=== PATIENT | female | born 1980 | race Asian ===

== ENCOUNTER 2017-08-31 11:10 | Inpatient (IN) | payer BC ==
[2017-08-31 12:16] LABS: BASO % 0.6 % (0-2.0); EOS % 0.7 % (0-4.5); HEMATOCRIT 26.2 % (32.4-45.2); HEMOGLOBIN 8.2 GM/dL (10.7-15.3); LYMPH % 17.3 % (8-40); MCHC 31.4 g/dl (32.0-36.0); MEAN CELL VOLUME 86.1 fl (80-96); MEAN PLT VOLUME 8.5 fl (7.5-11.1); MONO % 6.3 % (3.8-10.2); NEUT % 75.1 % (42.8-82.8); PLATELET COUNT 187 K/MM3 (134-434); RBC 3.05 M/mm3 (3.60-5.2); RDW 17.5 % (11.6-15.6); WHITE BLOOD COUNT 6.9 K/mm3 (4.0-10.0)
[2017-08-31 12:34] LABS: INR 0.93 (0.82-1.09); PROTHROMBIN TIME (PATIENT) 10.5 SEC (9.98-11.88)
[2017-08-31 12:38] LABS: ANION GAP 5 (8-16); BLOOD UREA NITROGEN 8 mg/dL (7-18); CHLORIDE 106 mmol/L (98-107); CO2 26 mmol/L (21-32); CREATININE 0.5 mg/dL (0.55-1.02); GLUCOSE,RANDOM 79 mg/dL (74-106); POTASSIUM 4.1 mmol/L (3.5-5.1); SODIUM 137 mmol/L (136-145)
[2017-08-31 12:53] VITALS: BMI 27.3
[2017-08-31] MEDS ORDERED: TUBERCULIN PPD 5 TU/0.1ML SYRINGE (IN PATIENT USE ONLY) ID ONE (13:00)
[2017-08-31] MEDS ORDERED: BUTORPHANOL TARTRATE 1 MG/ML VIAL IVPB ONE (15:30)
[2017-08-31] MEDS ORDERED: PROMETHAZINE HCL 25 MG/1 ML VIAL IVPUSH ONE (15:30)
[2017-08-31] MEDS ORDERED: ELECTROLYTE-148 SOLN 1,000 ML IV SCH (15:30)
--- NOTE | 2017-08-31 15:38 | HP ---
Past Medical History - Primary Care Physician PCP:: Rosana Potter - Admission Chief Complaint: induction at 40.1 weeks. AMA. Chronic Hepatitis History of Present Illness: 36 yo edc 08/29/17 ega 40.1 weeks admitted for induction no rom, bleeding or pain History Source: Patient - Past Medical History Hepatobiliary: Yes: Hepatitis B (Chronic) ...: 3 ...Para: 2 ...Term: 2 ...: 0 ...Spon : 0 ...Induced : 0 ...Multiple Gestation: 0 ...LMP: 11/23/16 ... Weeks Gestation by Dates: 40.1 ...EDC by Dates: 08/30/17 Additional Medical History: chronic hepatitis - Past Surgical History Past Surgical History: Yes: None Hx Myomectomy: No Hx Transabdominal Cerclage: No Additional Surgical History: abdominoplasty - Smoking History Smoking history: Never smoked Have you smoked in the past 12 months: No - Alcohol/Substance Use Hx Alcohol Use: No History of Substance Use: reports: None Home Medications - Allergies Allergies/Adverse Reactions: Allergies Allergy/AdvReac Type Severity Reaction Status Date / Time No Known Allergies Allergy Verified 08/31/17 11:44 - Home Medications Home Medications: Ambulatory Orders 19 Tablet 1 tab PO DAILY 08/31/17 Review of Systems - Review of Systems Constitutional: reports: No Symptoms Eyes: reports: No Symptoms HENT: reports: No Symptoms Neck: reports: No Symptoms Cardiovascular: reports: No Symptoms Respiratory: reports: No Symptoms Gastrointestinal: reports: No Symptoms Genitourinary: reports: No Symptoms Breasts: reports: No Symptoms Reported Musculoskeletal: reports: No Symptoms Integumentary: reports: No Symptoms Neurological: reports: No Symptoms Endocrine: reports: No Symptoms Hematology/Lymphatic: reports: No Symptoms Psychiatric: reports: No Symptoms Physical Exam - Maternity Vital Signs: Vital Signs Temperature 98.9 F 08/31/17 14:00 Pulse Rate 82 08/31/17 15:00 Respiratory Rate 18 08/31/17 15:00 Blood Pressure 100/57 08/31/17 15:00 O2 Sat by Pulse Oximetry (%) Constitutional: Yes: Well Nourished, No Distress Cardiovascular: Yes: WNL Lungs: Clear to auscultation Breast(s): Yes: WNL - Abdominal Exam/OB Fundal Height: 40 Number of Fetuses: Single Presentation: Vertex Contractions: No Monitor Mode: External Category: I Accelerations: Non-Uniform Decelerations: None - Vaginal Exam/OB Dilatation (cm): 3 cm Effacement (%): 50 Amniotic Membrane Status: Intact Presentation: Vertex/Position - Physical Exam Musculoskeletal: Yes: WNL Extremities: Yes: WNL Edema: No Psychiatric: Yes: WNL, Alert, Oriented - Labs Lab Results: CBC, BMP 08/31/17 12:00 08/31/17 12:00 Problem List - Problems (1) Elective induction of labor planned Assessment/Plan: LAbor Chronic Hepatitis Code(s): [id number] - Assessment/Plan iup at 40.1 weeks Chonic Hepatitis induction due to age Plan cervidil
[2017-08-31] MEDS ORDERED: DINOPROSTONE 10 MG VAGINAL SUPPOSITORY VG ONE (15:45)
[2017-08-31] MEDS ORDERED: DEXTROSE 5%-LACTATED RINGERS 1,000 ML IV ONE (23:18)
[2017-09-01] MEDS ORDERED: DEXTROSE 5%-LACTATED RINGERS 1,000 ML IV ONE (03:04)
[2017-09-01] MEDS ORDERED: OXYTOCIN 15 UNITS/ LR 250 ML 15 UNIT/250 ML INFUS.BAG IVPB ONE (04:15)
[2017-09-01] MEDS ORDERED: OXYTOCIN 30 UNITS in 0.9% NS 30 UNIT/500 ML INFUS.BAG IVPB SCH (04:15)
[2017-09-01] MEDS ORDERED: OXYTOCIN 20 UNITS in 0.9% NS 20 UNIT/1,000 ML INFUS.BAG IV ONE ×3 (04:16→09:12)
--- NOTE | 2017-09-01 07:03 | PN ---
Ante-Partal Exam - Subjective Subjective: Pt feels the urge to push Vital Signs: Vital Signs Temperature 98.0 F 09/01/17 03:00 Pulse Rate 62 09/01/17 03:00 Respiratory Rate 18 09/01/17 03:00 Blood Pressure 96/53 09/01/17 03:00 O2 Sat by Pulse Oximetry (%) Bleeding: No Headache: No Visual changes: No Right upper quadrant pain: No - Contractions Contractions: Yes Regularity: Regular Intensity: Mod/Strong Monitor Mode: External - Exam during Labor Heart Rate: 150 Variability: Moderate Category: I Monitor Decelerations: None Exam: Vaginal Dilatation (cm): FD Effacement (%): 100 Amniotic Membrane Status: Ruptured Amniotic Fluid: Clear Presentation: Vertex Station: +2 - Intrapartum Hemorrhage Risk Risk Score: 0 Risk Level: Low Risk - Assessment/Plan Assessment/Plan: 2nd stage labor Plan anticipate vaginal delivery
[2017-09-01] MEDS ORDERED: BENZOCAINE 20% 57 GM BOTTLE TP PRN (07:06)
[2017-09-01] MEDS ORDERED: BENZOCAINE 28 GM HEMORRHOIDAL OINTMENT TP PRN (07:06)
[2017-09-01] MEDS ORDERED: WITCH HAZEL 50% (TUCKS) 40 PAD/JAR PAD TP PRN (07:06)
[2017-09-01] MEDS ORDERED: METHYLERGONOVINE MALEATE 0.2 MG/1 ML AMP IM PRN (07:06)
[2017-09-01] MEDS ORDERED: IBUPROFEN 600 MG TABLET (FP) PO PRN (07:06)
[2017-09-01] MEDS ORDERED: ACETAMINOPHEN 325 MG TABLET (FP) PO PRN (07:06)
[2017-09-01] MEDS ORDERED: BISACODYL 10 MG SUPP.RECT RC PRN (07:06)
--- NOTE | 2017-09-01 07:06 | PN ---
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
[2017-09-01] MEDS ORDERED: OXYTOCIN 20 UNITS in 0.9% NS 20 UNIT/1,000 ML INFUS.BAG IV SCH (07:15)
[2017-09-01] MEDS: PRENATAL VITAMINS W/ FOLIC ACID TABLET (FP) PO SCH (10:50)
[2017-09-02 08:43] LABS: BASO % 0.3 % (0-2.0); EOS % 0.5 % (0-4.5); HEMATOCRIT 27.3 % (32.4-45.2); HEMOGLOBIN 8.5 GM/dL (10.7-15.3); LYMPH % 10.2 % (8-40); MCH 26.8 pg (25.7-33.7); MCHC 31.2 g/dl (32.0-36.0); MEAN CELL VOLUME 85.8 fl (80-96); MEAN PLT VOLUME 8.7 fl (7.5-11.1); MONO % 4.7 % (3.8-10.2); NEUT % 84.3 % (42.8-82.8); PLATELET COUNT 176 K/MM3 (134-434); RBC 3.19 M/mm3 (3.60-5.2); RDW 17.5 % (11.6-15.6); WHITE BLOOD COUNT 10.8 K/mm3 (4.0-10.0)
[2017-09-02] MEDS ORDERED: DIPHTH,PERTUSS(ACELL),TET 0.5 ML DISP.SYRIN IM ONE (10:00)
[2017-09-02] MEDS: PRENATAL VITAMINS W/ FOLIC ACID TABLET (FP) PO SCH (10:09)
--- NOTE | 2017-09-02 12:05 | CON.ID ---
Consult - Past Medical History Additional Medical History: chronic hepatitis - Past Surgical History Additional Surgical History: abdominoplasty - Alcohol/Substance Use Hx Alcohol Use: No - Smoking History Smoking history: Never smoked Have you smoked in the past 12 months: No Home Medications - Allergies Allergies/Adverse Reactions: Allergies Allergy/AdvReac Type Severity Reaction Status Date / Time No Known Allergies Allergy Verified 08/31/17 11:44 - Home Medications Home Medications: Ambulatory Orders 19 Tablet 1 tab PO DAILY 08/31/17 Physical Exam Vital Signs: Vital Signs Temperature 98 F 09/02/17 10:00 Pulse Rate 70 09/02/17 10:00 Respiratory Rate 20 09/02/17 10:00 Blood Pressure 102/56 09/02/17 10:00 O2 Sat by Pulse Oximetry (%) Labs: CBC, BMP 09/02/17 08:00 08/31/17 12:00
--- NOTE | 2017-09-02 12:20 | PN ---
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
[2017-09-02] MEDS ORDERED: SENNOSIDES/DOCUSATE COMBO (SENNA PLUS) TABLET (UD) PO PRN (22:00)
--- NOTE | 2017-09-03 01:44 | PN ---
Post Note - Post Date of Delivery: 09/01/17 Post Day: 1 Vital Signs: Vital Signs - 24 hr 09/02/17 09/02/17 09/02/17 02:00 06:00 10:00 Temperature 98.1 F 98.3 F 98 F Pulse Rate 72 65 70 Respiratory 20 20 20 Rate Blood Pressure 110/75 110/67 102/56 09/02/17 22:00 Temperature 98.6 F Pulse Rate 65 Respiratory 18 Rate Blood Pressure 122/65 Labs: Laboratory Results - last 24 hr 09/02/17 08:00 WBC 10.8 H D RBC 3.19 L Hgb 8.5 L Hct 27.3 L MCV 85.8 MCH 26.8 MCHC 31.2 L RDW 17.5 H Plt Count 176 MPV 8.7 Neutrophils % 84.3 H Lymphocytes % 10.2 D Monocytes % 4.7 Eosinophils % 0.5 Basophils % 0.3 - Subjective Subjective: No Complaints - Objective Afebrile: Yes Breast: Not engorged Abdomen: Soft, Non-tender Uterus: Fundus firm Vagina: Scant lochia Extremities: Non-tender - Assessment/Plan (1) Elective induction of labor planned Assessment: S/P Normal Plan: Routine Care, Other (Will draw LFTs Hepatitis profile viral load)
--- NOTE | 2017-09-03 01:46 | DS ---
Physical Exam-[employer] Vital Signs: Vital Signs Temperature 98.6 F 09/02/17 22:00 Pulse Rate 65 09/02/17 22:00 Respiratory Rate 18 09/02/17 22:00 Blood Pressure 122/65 09/02/17 22:00 O2 Sat by Pulse Oximetry (%) Constitutional: Yes: Well Nourished, No Distress Cardiovascular: Yes: WNL Respiratory: Yes: WNL Gastrointestinal: Yes: WNL, Normal Bowel Sounds, Soft ....Post : Yes: Uterus firm, Uterus non-tender Breast(s): Yes: WNL Musculoskeletal: Yes: WNL Extremities: Yes: WNL Edema: No Integumentary: Yes: WNL Labs: CBC, BMP 09/02/17 08:00 08/31/17 12:00 Delivery - Delivery Vaginal Delivery: No Problems Type of Anesthesia: None Episiotomy/Laceration: None EBL (cc): 300 Delivery, Single - Stages of Labor Date 1st Stage Initiatied: 09/01/17 Time 1st Stage Initiated: 03:00 Date 2nd Stage Initiated: 09/01/17 Time 2nd Stage Initiated: 06:40 Date of Delivery: 09/01/17 Time of Delivery: 06:46 Time Placenta Delivered: 06:50 Placenta: Yes: Spontaneous - 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 You may walk unlimited ashutosh of and climb stairs. You may resume driving the car when you feel safe and comfortable behind the wheel. No sexual activity as instructed. Wound care If you have a bandage, leave it on, and keep dry for 48-72 hours. After that time discard the outer bandage. If they are tapes on the skin under the out of bandage leave them in place. They will peel off in the next 7 to 10 days. Do Not Peel them off. You may shower the day after surgery. If there are tapes present on the skin, you may shower over them. Diet There are no dietary restrictions. Eat healthy, high-fiber foods. Drink 6 to 8 glasses of liquid each day. This will assist in keeping your bowels are regular. Pain management You may take Tylenol or acetaminophen or Ibuprofen (for example, Motrin, Advil etc.) from my pain prescription medication is ordered should be taken as prescribed for moderate to severe pain. Call MD for any of the following: Severe pain not relieved by medication Fever of 101 or higher Excessive bleeding or drainage on dressing Inability to urinate Referrals: Rosana Potter MD [Staff Physician] - Disposition: HOME - Home Medications Comprehensive Discharge Medication List: Ambulatory Orders 19 Tablet 1 tab PO DAILY 08/31/17
[2017-09-03] MEDS: PRENATAL VITAMINS W/ FOLIC ACID TABLET (FP) PO SCH (09:43)
[2017-09-03 09:51] LABS: ALBUMIN 3.1 g/dl (3.4-5.0); BILIRUBIN,DIRECT < 0.2 mg/dL (0.0-0.2); BILIRUBIN,TOTAL 0.5 mg/dL (0.2-1.0); SGOT/AST 76 U/L (15-37); SGPT/ALT 69 U/L (12-78)
[2017-09-03 09:52] LABS: ALK PHOS 118 U/L (45-117); TOT PROT 6.6 g/dl (6.4-8.2)
[2017-09-03 11:08] VITALS: BP 91/59; PULSE 74; TEMP 99.2
[2017-09-05 00:06] LABS: HEP B CORE AB, IGM Negative (Negative)
== END 2017-09-03 15:10 | disposition home or self-care (01) | DRG 774 ==
LOC: JLDR 11:10 → UNDOADMIN 11:10 → JERBED 11:10 → J3W 09-01 09:22
PROVIDERS: ADMIT Obstetrics & Gynecology; ATTEND Obstetrics & Gynecology
PROC: 10E0XZZ Delivery of Products of Conception, External Approach (ICD-10-PCS; principal; 2017-09-01)
DX: O98.42 Viral hepatitis complicating childbirth (principal); Z3A.40 40 weeks gestation of pregnancy; Z37.0 Single live birth
CPT/HCPCS: 36415; 59409; 71045-TC-FY; 80048; 80074; 80076; 85025; 85610; 85730; 86593; 86704; 86705; 86707; 86762; 86850; 86900; 86901; 87340; 87350; 90715